=== PATIENT | female | born 1945 | race Caucasian/White ===

== ENCOUNTER → 2017-10-16 15:29 | Outpatient (CLI) | payer MEDICARE ==
[2016-04-11 08:32] VITALS: BMI 18.9
[~2017-10-16 15:29] MED LIST: ASPIRIN81 MG PO; ATENOLOL25 MG PO; BETAPACE 80 MG80 MG PO; IMDUR30 MG; NITROSTAT0.4 MG SL; NORVASC5 MG PO; PLAVIX75 MG PO
== END | disposition home or self-care (01) ==
LOC: D.MAMMO 15:15
DX: Z12.31 Encounter for screening mammogram for malignant neoplasm of breast (principal)

== ENCOUNTER 2018-11-15 15:20 | Inpatient (IN) | payer MEDICARE ==
[~2018-11-15] VITALS: Ht 162.6 cm; Wt 52.3 kg
[2018-11-15 15:54] LABS: HEMATOCRIT 37.9 % (36.0-48.0); LYMPHOCYTES 13.5 % (15-50); MCH 35.2 pg (26.0-34.0); MCHC 34.3 g/dL (31.0-37.0); MCV 102.7 fL (80.0-100.0); MEAN PLATELET VOLUME 9.5 fL (7.4-10.4); NEUTROPHILS 77.6 % (40-80); PLATELET COUNT 183 10x3/uL (130-400); RBC 3.69 10x6/uL (4.00-5.40); RDW 13.1 % (11.5-14.5); WBC 6.2 10x3/uL (4.8-10.8)
[2018-11-15 16:02] LABS: INR 0.99 (0.85-1.17); PROTIME 12.6 SECONDS (11.6-15.0)
[2018-11-15 16:09] LABS: ALBUMIN 3.6 g/dL (3.4-5.0); ALKALINE PHOSPHATASE 122 U/L (46-116); ALT (SGPT) 17 U/L (10-68); BILIRUBIN - TOTAL 0.54 mg/dL (0.2-1.3); CALC OSMOLALITY 280 mosm/kg (275-300); CALCIUM 9.2 mg/dL (8.5-10.1); CARBON DIOXIDE 29.3 mmol/L (21.0-32.0); CHLORIDE - SERUM 102 mmol/L (98-107); CREATININE - SERUM 0.9 mg/dL (0.6-1.3); GLUCOSE 100 mg/dL (74-106); POTASSIUM - SERUM 4.7 mmol/L (3.5-5.1); PROTEIN - SERUM 7.6 g/dL (6.4-8.2); SODIUM 139 mmol/L (136-145); UREA NITROGEN 20 mg/dL (7-18); eGFR NON AFRICAN AMERICAN 65 mL/min (90-120)
[2018-11-15 16:10] LABS: APTT 26.9 SECONDS (22.8-39.4)
[2018-11-15 16:20] LABS: CKMB 0.6 U/L (0.0-3.6); CREATINE KINASE 47 UL (21-215); MAGNESIUM - SERUM 2.3 mg/dL (1.8-2.4); TROPONIN-I < 0.017 ng/mL (0.000-0.060)
[2018-11-15 22:35] VITALS: BP 141/79
[2018-11-15 23:49] VITALS: BP 153/76; BMI 19.7
[2018-11-16] VITALS: BP 153/76
[2018-11-16 04:00] VITALS: BP 118/54
[2018-11-16 08:28] VITALS: BP 131/59
[2018-11-16 10:34] LABS: BASOPHILS 0.4 % (0-2); EOSINOPHILS 1.9 % (0-7); HEMATOCRIT 39.4 % (36.0-48.0); HEMOGLOBIN 13.2 g/dL (12-16); IMMATURE GRANULOCYTES 0.4 % (0-5); LYMPHOCYTES 20.4 % (15-50); MCH 34.8 pg (26.0-34.0); MCHC 33.5 g/dL (31.0-37.0); MEAN PLATELET VOLUME 10.4 fL (7.4-10.4); NEUTROPHILS 67.9 % (40-80); PLATELET COUNT 215 10x3/uL (130-400); RBC 3.79 10x6/uL (4.00-5.40); RDW 13.4 % (11.5-14.5); WBC 5.7 10x3/uL (4.8-10.8)
[2018-11-16 10:47] LABS: ALBUMIN 3.4 g/dL (3.4-5.0); ANION GAP 11.2 mmol/L (8-16); BILIRUBIN - TOTAL 0.46 mg/dL (0.2-1.3); CALCIUM 9.1 mg/dL (8.5-10.1); CARBON DIOXIDE 28.3 mmol/L (21.0-32.0); CREATININE - SERUM 0.9 mg/dL (0.6-1.3); PROTEIN - SERUM 7.5 g/dL (6.4-8.2)
[2018-11-16 10:48] LABS: POTASSIUM - SERUM 3.5 mmol/L (3.5-5.1)
[2018-11-16 11:08] VITALS: Ht 162.6 cm; Wt 52.3 kg
[2018-11-16 12:58] VITALS: BP 151/53
[2018-11-16 15:58] VITALS: BP 105/47
[2018-11-16 20:00] VITALS: BP 117/55
[2018-11-17] VITALS: BP 113/47
[2018-11-17 04:00] VITALS: BP 111/54
[2018-11-17 06:33] LABS: BASOPHILS 0.4 % (0-2); EOSINOPHILS 6.9 % (0-7); HEMATOCRIT 36.3 % (36.0-48.0); HEMOGLOBIN 11.9 g/dL (12-16); IMMATURE GRANULOCYTES 0.4 % (0-5); LYMPHOCYTES 25.2 % (15-50); MCHC 32.8 g/dL (31.0-37.0); MCV 103.7 fL (80.0-100.0); MEAN PLATELET VOLUME 10.6 fL (7.4-10.4); MONOCYTES 12.1 % (2-11); PLATELET COUNT 190 10x3/uL (130-400); RDW 13.4 % (11.5-14.5); WBC 5.4 10x3/uL (4.8-10.8)
[2018-11-17 07:06] LABS: ALBUMIN 2.8 g/dL (3.4-5.0); BILIRUBIN - TOTAL 0.32 mg/dL (0.2-1.3); CALCIUM 8.6 mg/dL (8.5-10.1); CARBON DIOXIDE 27.3 mmol/L (21.0-32.0); CREATININE - SERUM 0.9 mg/dL (0.6-1.3); PROTEIN - SERUM 6.4 g/dL (6.4-8.2)
[2018-11-17 07:11] LABS: ANION GAP 11.8 mmol/L (8-16); POTASSIUM - SERUM 4.1 mmol/L (3.5-5.1)
[2018-11-17 09:00] VITALS: BP 123/57
[2018-11-17 12:00] VITALS: BP 130/59
[2018-11-17] MEDS ORDERED: TESSALON PERLE100 MG PO (15:22)
[2018-11-17] MEDS ORDERED: MUCINEX600 MG PO (15:23)
[2018-11-17] MEDS ORDERED: OMNICEF300 MG PO (15:23)
[2018-11-17] MEDS ORDERED: ZITHROMAX250 MG PO (15:23)
--- NOTE | 2018-11-17 15:47 | MORECARE ---
CASE MANAGEMENT DISCHARGE SUMMARY PATIENT: CARLOS CRAIG UNIT: [id number] ADM DATE: 11/15/18 AGE: 73 : 41 SEX: F ROOM/BED: D.2223 AUTHOR: REE LLOYD PHYSICIAN: REFERRING PHYSICIAN: JI LARKIN MD DATE OF SERVICE: 11/17/18 Discharge Plan Patient Name: CARLOS CRAIG [facility] [facility] 1945 Planned Disposition: Home Anticipated Discharge Date: 11/17/18 Discharge Date: Expected LOS: 2 Initial Reviewer: [email or web address] Initial Review Date: 11/15/2018 Generated: 11/17/18 4:46 pm DCPIA - Discharge Planning Initial Assessment Updated by [email or web address]: Lani Schuster on 11/17/18 3:44 pm * Is the patient Alert and Oriented? Yes * How many steps to enter\exit or inside your home? ramp * PCP DR VELASQUEZ * Pharmacy [facility] [address] * Preadmission Environment Home with Family * ADLs Independent * Equipment None * Other Equipment Denies any DME * List name and contact numbers for known caregivers / representatives who currently or will assist patient after discharge: EVIE FELIX [phone] * Verbal permission to speak to the caregivers and representatives has been obtained from the patient. Yes * Community resources currently utilized None * Please name any agencies selected above. N/A * Additional services required to return to the preadmission environment? Yes * Can the patient safely return to the preadmission environment? Yes * Has this patient been hospitalized within the prior 30 days at any hospital? No Patient Name: CARLOS CRAIG Page [id number] at 1547 All edits/amendments must be made on the electronic document DICTATION DATE: 11/17/181545 BRICK MOLDER HAND: KECIA 11/17/181545 RPT#: [id number] DC DATE: STATUS: ADM IN [facility] [address] [place] [address] END OF REPORT
[2018-11-17 16:00] VITALS: BP 121/55
--- NOTE | 2018-11-17 16:01 | MORECARE ---
CASE MANAGEMENT DISCHARGE SUMMARY PATIENT: CARLOS CRAIG UNIT: [id number] ADM DATE: 11/15/18 AGE: 73 : 43 SEX: F ROOM/BED: D.2223 AUTHOR: GABINODOC PHYSICIAN: REFERRING PHYSICIAN: JI LARKIN MD DATE OF SERVICE: 11/17/18 Discharge Plan Patient Name: CARLOS CRAIG Facility: [facility]:[place] : 1945 Planned Disposition: Home Anticipated Discharge Date: 11/17/18 Discharge Date: Expected LOS: 2 Initial Reviewer: [email or web address] Initial Review Date: 11/15/2018 Generated: 11/17/18 5:01 pm Comments DCP- Discharge Planning Updated by [email or web address]: Lani Schuster on 11/17/18 2:[address] CM MET WITH THE PATIENT AT THE BEDSIDE. SHE IS ANXIOUS TO GO HOME TODAY. TC BY COORDINATOR TO DR BELLO . PLAN TO CHECK WITH THE REELER OPERATOR REGARDING D/C TO HOME. CM DISCUSSED DISCHARGE ORDERS. PATIENT DECLINES HOME HEALTH. DOES NOT FEELS SHE NEEDS IT. POC FORM SIGNED WITH NOTE REGARDING REFUSAL. SHE WILL ACCEPT HOUSE CALLS. CM ADVISED HOW TO OBTAIN HOME HEALTH SHOULD SHE CHANGE HER MIND. DISCHARGE IMM EXPLAINED AND SIGNATURE OBTAINED COPY TO THE PATIENT. SIGNED COPY TO THE CHART. PCP DR VELASQUEZ [facility] [address] EAMP TO ENTER HER HOME. DENIES ANY DME. HER DAUGHTER WILL PROVIDE TRANSPORTATION TO HOME. DCPIA - Discharge Planning Initial Assessment Updated by [id number]: Lani Schuster on 11/17/18 3:44 pm * Is the patient Alert and Oriented? Yes * How many steps to enter\exit or inside your home? ramp * PCP DR VELASQUEZ * Pharmacy [facility] [address] * Preadmission Environment Home with Family * ADLs Independent * Equipment None * Other Equipment Denies any DME * List name and contact numbers for known caregivers / representatives who currently or will assist patient after discharge: EVIE FELIX [phone] * Verbal permission to speak to the caregivers and representatives has been obtained from the patient. Yes * Community resources currently utilized None * Please name any agencies selected above. N/A * Additional services required to return to the preadmission environment? Yes * Can the patient safely return to the preadmission environment? Yes * Has this patient been hospitalized within the prior 30 days at any hospital? No Coverage Notice Reviewer: [email or web address] Sophia Schuster Notice Issued Date-Time: 11/17/2018 15:13 Notice Type: IM Discharge Notice Notice Delivered To: Patient Relationship to Patient: Sprayer Automatic Spray Machine Name: Delivery Method: HAND - Hand Delivered Faye Days: Prior Verbal Notification: Recipient Understood Notice: Yes Recipient Signature: Yes Med Rec Note Co-signed by Attending: Coverage Notice Comment: DISCHARGE IMM EXPLAINED TO THE PATIENT. SHE SAYS SHE UNDERSTAND. COPY TO THE PATIENT AND COPY TO THE CHART. Last DP export: 11/17/18 2:47 p Patient Name: CARLOS CRAIG Page [id number] at 1601 All edits/amendments must be made on the electronic document DICTATION DATE: 11/17/18 160 PERIOPERATIVE EDUCATOR: KECIA 11/17/18 1601 RPT#: [id number] DC DATE: STATUS: ADM IN [facility] [address] [place] [address] END OF REPORT
== END 2018-11-17 16:50 | disposition home or self-care (01) | DRG 193 ==
LOC: D.ER 15:20 → D.MS 21:11 → D.EDHOLD 21:11 → D.MS 22:14
PROVIDERS: Family Medicine; ADMIT Emergency Medicine
DX: J18.9 Pneumonia, unspecified organism (principal); J96.01 Acute respiratory failure with hypoxia; Z68.1 Body mass index [BMI] 19.9 or less, adult; I48.2 Chronic atrial fibrillation; I10 Essential (primary) hypertension; I25.10 Atherosclerotic heart disease of native coronary artery without angina pectoris